=== PATIENT | male | born 1970 | race Caucasian/White ===

== ENCOUNTER 2021-01-31 17:05 | Outpatient (CLI) | payer OTHER, SELFPAY ==
--- NOTE | ~2021-01-31 | XR_ITS ---
XR lumbar spine 2-3V DATE: 01/31/2021 17:31 INDICATION: Mid and low back pain radiating to tailbone. TECHNIQUE: AP, lateral, coned lateral lumbosacral views COMPARISON: None FINDINGS: Surgical clips overlie the right upper quadrant, consistent with cholecystectomy. There is moderate moderate degenerative disc disease of the lumbar interspaces. No fracture or bone destruction is evident. The included lower thoracic and lumbar pedicles are intac t. The sacroiliac joints are normal. IMPRESSION: Moderate moderate degenerative disc disease Status post cholecystectomy Reviewed, dictated and finalized at location A.
--- NOTE | ~2021-01-31 | XR_ITS ---
XR sacrum coccyx min 2V DATE: 01/31/2021 17:31 INDICATION: Lumbar and sacral pain TECHNIQUE: AP, angled AP and lateral views COMPARISON: None FINDINGS: No fracture or bone destruction of the sacrum or coccyx. The sacroiliac joints and pubic sy mphysis are intact. Mild degenerative disc disease at L4-5. IMPRESSION: No significant abnormality of the sacrum or coccyx Reviewed, dictated and finalized at location A.
== END 2021-01-31 17:06 | disposition home or self-care (01) ==
LOC: ANHIMG 17:12
PROVIDERS: PCP Physician Assistant; Visit Provider Physician Assistant
DX: M53.3 Sacrococcygeal disorders, not elsewhere classified (principal); Z90.49 Acquired absence of other specified parts of digestive tract; M51.36 Other intervertebral disc degeneration, lumbar region
CPT/HCPCS: 72100; 72220